=== PATIENT | female | born 1995 | race African-American/Black ===

== ENCOUNTER 2017-08-21 01:09 | Emergency (ER) | payer OTHER ==
[~2017-08-21] VITALS: Ht 162.6 cm; Wt 103.0 kg
[2017-08-21 01:09] VITALS: BP 123/67
--- NOTE | 2017-08-21 01:23 | ED.ADGEN ---
Past History Past Medical History: No Pertinent History Past Surgical History: No Surgical History Smoking: Non-smoker Alcohol Use: None Drug Use: None Adult General Chief Complaint Chief Complaint " I got this rash...it started this morning.. I did take some benadryl... it help.. but it still here... I have not done anything different other than Pizza the other night..." HPI HPI Patient is a 22 year old female who presents with above hx and complaints. Diffuse distribution of hives like lesions on her skin. Patient cannot think of anything new in her diet, soaps or detergents, personal hygiene products or exposures. No previous history of hives. No recent use of antibiotics. 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 No recent travel. Only thing different in diet or as she had pizza yesterday, Review of Systems Review of Systems Constitutional: Denies fever or chills [] Eyes: Denies change in visual acuity, redness, or eye pain [] HENT: Denies nasal congestion or sore throat [] Respiratory: Denies cough or shortness of breath [] Cardiovascular: No additional information not addressed in HPI [] GI: Denies abdominal pain, nausea, vomiting, bloody stools or diarrhea [] : Denies dysuria or hematuria [] Musculoskeletal: Denies back pain or joint pain [] Integument: Complaints of hives Neurologic: Denies headache, focal weakness or sensory changes [] Endocrine: Denies polyuria or polydipsia [] All other systems were reviewed and found to be within normal limits, except as documented in this note. Family History Family History Noncontributory Current Medications Current Medications Current Medications Medications (Trade) Dose Ordered Sig/Aide Start Time Stop Time Status Last Admin Dose Admin Famotidine (Pepcid) 20 mg 1X ONCE 08/21/17 01:45 08/21/17 01:46 DC 08/21/17 02:02 20 MG Prednisone (Prednisone) 50 mg 1X ONCE 08/21/17 01:45 08/21/17 01:46 DC 08/21/17 02:02 50 MG Allergies Allergies Allergies Coded Allergies Type Severity Reaction Last Updated Verified No Known Drug Allergies 01/15/15 No Physical Exam Physical Exam Constitutional: Mild distress, non-toxic appearance. [] HENT: Normocephalic, atraumatic, bilateral external ears normal, oropharynx moist, no oral exudates, nose normal. [] Eyes: PERRLA, EOMI, conjunctiva normal, no discharge. [] Neck: Normal range of motion, no tenderness, supple, no stridor. [] Cardiovascular:Heart rate regular rhythm, no murmur [] Lungs & Thorax: Bilateral breath sounds clear to auscultation [] Abdomen: Bowel sounds normal, soft, no tenderness, no masses, no pulsatile masses. Obese. Skin: Warm, dry, no erythema, scattered hives. Some areas of excoriation from scratching Back: No tenderness, no CVA tenderness. [] Extremities: No tenderness, no cyanosis, no clubbing, ROM intact, no edema. [] Neurologic: Alert and oriented X 3, normal motor function, normal sensory function, no focal deficits noted. [] Psychologic: Affect normal, judgement normal, mood normal. [] EKG EKG [] Radiology/Procedures Radiology/Procedures [] Course & Med Decision Making Course & Med Decision Making Pertinent Labs and Imaging studies reviewed. (See chart for details). Patient to try and determine any changes in her daily contacts or exposures. Patient take prednisone 50 mg a day for 5 days. Patient take Zantac and 50 mg twice day for 14 days. Patient to continue to take Benadryl 25-50 mg 4 times a day. Follow-up primary care. Return if any concerns. [] Final Impression Final Impression 1. Hives.[] Problems: Dragon Disclaimer Dragon Disclaimer This electronic medical record was generated, in whole or in part, using a voice recognition dictation system. ANDREI DENNIS MD Aug 21, 2017 01:23
[2017-08-21] MEDS ORDERED: RANI150T6 PO (01:39)
[2017-08-21] MEDS ORDERED: PRED50TA PO (01:39)
[2017-08-21] MEDS ORDERED: predniSONE 10 MG TABLET PO ONE (01:45)
[2017-08-21] MEDS ORDERED: FAMOTIDINE 20 MG TABLET PO ONE (01:45)
== END 2017-08-21 02:10 | disposition home or self-care (01) ==
LOC: ER 01:09
DX: L50.9 Urticaria, unspecified (principal)
CPT/HCPCS: 99283; J7512

== ENCOUNTER 2017-12-02 20:09 | Emergency (ER) | payer OTHER ==
[~2017-12-02] VITALS: Ht 165.1 cm; Wt 113.4 kg
[~2017-12-02 20:09] MED LIST: PRED50TA PO; RANI150T21 PO
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
[2017-12-02] MEDS ORDERED: CYCL-331 PO (20:48)
[2017-12-02] MEDS ORDERED: HYDR-79 PO (20:48)
[2017-12-02] MEDS ORDERED: KETOROLAC 60 MG/2 ML VIAL. IM ONE (21:00)
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
[2017-12-02 21:42] LABS: BACTERIA,URINE MANY /HPF (0-FEW); BILIRUBIN,URINE NEG (NEG); CLARITY,URINE HAZY; COLOR,URINE YELLOW; GLUCOSE,URINE NEG (NEG); NITRITE,URINE NEG (NEG); SQUAMOUS EPITHELIAL CELL,UR FEW /LPF; UROBILINOGEN,URINE 0.2 mg/dL (0.2 mg/dL)
[2017-12-02] MEDS ORDERED: CEPH-264 PO (21:44)
[2017-12-02 21:52] VITALS: BP 119/82
[2017-12-02] MEDS ORDERED: CEPHALEXIN 250 MG CAPSULE PO ONE (22:00)
== END 2017-12-02 21:59 | disposition home or self-care (01) ==
LOC: ER 20:09
DX: M54.2 Cervicalgia (principal); N39.0 Urinary tract infection, site not specified; V43.52XA Car driver injured in collision with other type car in traffic accident, initial encounter; Y93.89 Activity, other specified; Y99.8 Other external cause status; Y92.488 Other paved roadways as the place of occurrence of the external cause
CPT/HCPCS: 72125; 81001; 87086; 96372; 99285; J1885

== ENCOUNTER → 2019-05-30 | Outpatient (CLI) | payer OTHER ==
[~2019-05-30] MED LIST changes: +CEPH-264 PO; +CYCL-331 PO; +HYDR-1179 PO; +RANI-376 PO; -RANI150T21 PO
== END | disposition home or self-care (01) ==
LOC: LAB 14:29
PROVIDERS: ATTEND Nurse Practitioner Women's Health
DX: Z11.3 Encounter for screening for infections with a predominantly sexual mode of transmission (principal)
CPT/HCPCS: 86592; 86703; 86803